=== PATIENT | male | born 1960 | race Caucasian/White ===

== ENCOUNTER → 2018-02-08 10:13 | Outpatient (CLI) | payer BC, SELFPAY ==
--- NOTE | 2018-02-08 10:24 | XR_ITS ---
XR ribs LT min 3V w CXR1V HISTORY: Is ITS.REASON: LT POSTERIOR RIB PAIN, FALL 5 DAYS AGO ORDERING PHYSICIAN: Michael Morris MD PATIENT AGE: 57 years COMPARISON: None FINDINGS: A frontal view of the chest shows no acute finding. Multiple views of the Left ribs were obtained. There is a minimally displaced fracture involving the posterior aspect of the left 10th rib and a nondisplaced fracture of the left ninth rib. IMPRESSION: Minimally displaced left 10th rib fracture with possible nondisplaced left ninth rib fracture
== END ==
PROVIDERS: PCP Family Medicine; Visit Provider Family Medicine
DX: R07.81 Pleurodynia (principal)
CPT/HCPCS: 71101

== ENCOUNTER → 2018-07-11 09:43 | Outpatient (CLI) | payer OTHER, SELFPAY ==
[2018-07-11 12:27] LABS: Alanine Aminotransferase 17 U/L (12-78); Albumin Level 3.8 gm/dL (3.4-5.0); Albumin/Globulin Ratio 1.3 (1.1-1.8); Alkaline Phosphatase 100 U/L (46-116); Anion Gap 11.9 mEq/L (5-15); Aspartate Amino Transferase 11 U/L (15-37); Bilirubin,Total 0.4 mg/dL (0.2-1.0); Blood Urea Nitrogen 19 mg/dL (7-18); Calcium 9.3 mg/dL (8.5-10.1); Carbon Dioxide 29 mmol/L (21.0-32.0); Chloride 106 mmol/L (98-107); Chol/HDL Ratio 3.3 (1-3.5); Cholesterol 201 mg/dL (140-200); Estimated Glomerular Filt Rate 87 ml/min (>60); GFR (African American) 105 ML/MIN (>60); Glucose 94 mg/dL (74-106); HDL Cholesterol 61 mg/dL (27-67); LDL Cholesterol 123 mg/dL (0-130); Potassium 4.9 mmoL/L (3.5-5.1); Sodium 142 mmol/L (136-145); Total Protein,Serum 6.8 gm/dL (6.4-8.2); Triglycerides 84 mg/dL (30-200); VLDL Cholesterol 17 mg/dL (0-40)
== END ==
PROVIDERS: PCP Family Medicine; Visit Provider Family Medicine
DX: E78.5 Hyperlipidemia, unspecified (principal); I10 Essential (primary) hypertension
CPT/HCPCS: 36415; 80053; 80061

== ENCOUNTER → 2020-01-07 10:05 | Outpatient (CLI) | payer OTHER, SELFPAY ==
[2020-01-07 11:31] LABS: Chloride 102 mmol/L (98-107); Potassium 4.2 mmoL/L (3.5-5.1); Sodium 138 mmol/L (136-145)
[2020-01-07 11:34] LABS: Alanine Aminotransferase 16 U/L (12-78); Albumin Level 3.8 g/dl (3.5-5.0); Albumin/Globulin Ratio 1.5 (1.1-1.8); Alkaline Phosphatase 75 U/L (38-126); Anion Gap 10.2 mEq/L (5-15); Aspartate Amino Transferase 20 U/L (17-59); Bilirubin,Total 0.4 mg/dl (0.2-1.3); Blood Urea Nitrogen 16 mg/dl (9-20); Carbon Dioxide 30 mmol/L (22.0-30.0); Cholesterol 229 mg/dl (140-200); Estimated Glomerular Filt Rate 99 ml/min (>60); GFR (African American) 120 ML/MIN (>60); Globulin 2.6 g/dL (1.3-3.2); Glucose 95 mg/dl (74-100); Total Protein,Serum 6.4 g/dl (6.3-8.2); Triglycerides 149 mg/dl (30-150); VLDL Cholesterol 30 mg/dL (0-40)
[2020-01-07 11:35] LABS: Chol/HDL Ratio 4.5 (1-3.5); HDL Cholesterol 51 mg/dl (40-60)
[2020-01-07 11:46] LABS: Direct LDL Cholesterol 150.43 mg/dL (100-129)
[2020-01-07 13:11] LABS: Prostate Specific Ag Screen 1.3 ng/ml (0.0-4.0)
== END ==
PROVIDERS: Visit Provider Physician Assistant
DX: I10 Essential (primary) hypertension (principal); E78.2 Mixed hyperlipidemia; Z12.5 Encounter for screening for malignant neoplasm of prostate
CPT/HCPCS: 36415; 80053; 80061; G0103

== ENCOUNTER → 2020-06-10 16:20 | Outpatient (CLI) | payer OTHER, SELFPAY ==
--- NOTE | 2020-06-10 16:33 | ECG_ITS ---
APPROVED REPORT Exam: Resting ECG HR:60 bpm ECG Measurements Heart Rate 60 AXES FL 186 P 36 QRSd 116 QRS -31 QT 404 T 1 QTc 404 <Conclusion> Normal sinus rhythm Left axis deviation,LAHB Incomplete RBBB Left ventricular hypertrophy with QRS widening Abnormal ECG Electronically signed by : Fracisco Hernandez, 06/10/2020 19:50:35
== END ==
PROVIDERS: PCP Family Medicine; Visit Provider Family Medicine
DX: Z01.810 Encounter for preprocedural cardiovascular examination (principal); H25.9 Unspecified age-related cataract
CPT/HCPCS: 93005

== ENCOUNTER → 2020-10-22 12:04 | Outpatient (CLI) | payer OTHER, SELFPAY ==
[2020-10-22 14:19] LABS: Chloride 101 mmol/L (98-107); Sodium 137 mmol/L (136-145)
[2020-10-22 14:22] LABS: Alanine Aminotransferase 20 U/L (12-78); Albumin Level 4.6 g/dl (3.5-5.0); Albumin/Globulin Ratio 1.6 (1.1-1.8); Alkaline Phosphatase 98 U/L (38-126); Aspartate Amino Transferase 32 U/L (17-59); Bilirubin,Total 0.7 mg/dl (0.2-1.3); Blood Urea Nitrogen 25 mg/dl (9-20); Carbon Dioxide 29 mmol/L (22.0-30.0); Cholesterol 160 mg/dl (140-200); Estimated Glomerular Filt Rate 76 ml/min (>60); GFR (African American) 92 ML/MIN (>60); Globulin 2.9 g/dL (1.3-3.2); Glucose 96 mg/dl (74-100); Total Protein,Serum 7.5 g/dl (6.3-8.2); Triglycerides 130 mg/dl (30-150); VLDL Cholesterol 26 mg/dL (0-40)
[2020-10-22 14:23] LABS: HDL Cholesterol 54 mg/dl (40-60)
[2020-10-22 14:34] LABS: Direct LDL Cholesterol 82.16 mg/dL (100-129)
[2020-10-22 14:53] LABS: Thyroid Stimulating Hormone 0.73 uIU/mL (0.465-4.68)
[2020-10-22 15:07] LABS: Hemoglobin A1C 5.6 % (4.0-6.0)
== END ==
PROVIDERS: Visit Provider Family Medicine
DX: I10 Essential (primary) hypertension (principal); E78.5 Hyperlipidemia, unspecified; R60.0 Localized edema; Z83.3 Family history of diabetes mellitus
CPT/HCPCS: 36415; 80053; 80061; 83036; 84443

== ENCOUNTER → 2020-12-10 10:56 | Outpatient (CLI) | payer OTHER, SELFPAY ==
[2020-12-10 11:43] LABS: Chloride 101 mmol/L (98-107); Potassium 4.5 mmoL/L (3.5-5.1); Sodium 138 mmol/L (136-145)
[2020-12-10 11:46] LABS: Anion Gap 12.5 mEq/L (5-15); Blood Urea Nitrogen 24 mg/dl (9-20); Carbon Dioxide 29 mmol/L (22.0-30.0); Estimated Glomerular Filt Rate 76 ml/min (>60); GFR (African American) 92 ML/MIN (>60)
[2020-12-10 11:47] LABS: Calcium 9.6 mg/dl (8.4-10.2); Glucose 106 mg/dl (74-100)
== END ==
PROVIDERS: Visit Provider Family Medicine
DX: R60.0 Localized edema (principal)
CPT/HCPCS: 36415; 80048

== ENCOUNTER → 2021-01-24 17:40 | Outpatient (CLI) | payer OTHER, SELFPAY | PROVIDERS: PCP Family Medicine; Visit Provider Orthopaedic Surgery Hand Surgery | DX: Z01.818 Encounter for other preprocedural examination (principal); Z11.52 Encounter for screening for COVID-19 | CPT/HCPCS: U0003 ==

== ENCOUNTER → 2021-05-06 08:23 | Outpatient (CLI) | payer OTHER, SELFPAY ==
[2021-05-06 09:57] LABS: Chloride 104 mmol/L (98-107); Sodium 140 mmol/L (136-145)
[2021-05-06 09:58] LABS: Potassium 4.6 mmoL/L (3.5-5.1)
[2021-05-06 09:59] LABS: Blood Urea Nitrogen 22 mg/dl (9-20)
[2021-05-06 10:00] LABS: Alanine Aminotransferase 13 U/L (12-78); Albumin Level 4.5 g/dl (3.5-5.0); Albumin/Globulin Ratio 1.6 (1.1-1.8); Alkaline Phosphatase 111 U/L (38-126); Anion Gap 12.6 mEq/L (5-15); Aspartate Amino Transferase 20 U/L (17-59); Bilirubin,Total 0.7 mg/dl (0.2-1.3); Calcium 9.3 mg/dl (8.4-10.2); Carbon Dioxide 28 mmol/L (22.0-30.0); Cholesterol 161 mg/dl (140-200); Estimated Glomerular Filt Rate 86 ml/min (>60); GFR (African American) 104 ML/MIN (>60); Globulin 2.8 g/dL (1.3-3.2); Glucose 105 mg/dl (74-100); Total Protein,Serum 7.3 g/dl (6.3-8.2); Triglycerides 94 mg/dl (30-150); VLDL Cholesterol 19 mg/dL (0-40)
[2021-05-06 10:01] LABS: Chol/HDL Ratio 3.2 (1-3.5); HDL Cholesterol 50 mg/dl (40-60); Magnesium 1.6 mg/dl (1.6-2.3)
[2021-05-06 10:12] LABS: Direct LDL Cholesterol 89.77 mg/dL (100-129)
[2021-05-06 11:11] LABS: Prostate Specific Ag Screen 1.5 ng/ml (0.0-4.0)
== END ==
PROVIDERS: Visit Provider Family Medicine
DX: I10 Essential (primary) hypertension (principal); E78.5 Hyperlipidemia, unspecified; Z12.5 Encounter for screening for malignant neoplasm of prostate
CPT/HCPCS: 36415; 80053; 80061; 83735; G0103

== ENCOUNTER → 2022-05-08 13:50 | Outpatient (CLI) | payer OTHER, SELFPAY | PROVIDERS: PCP Family Medicine; Visit Provider Orthopaedic Surgery Orthopaedic Trauma | DX: Z01.812 Encounter for preprocedural laboratory examination (principal); Z20.822 Contact with and (suspected) exposure to COVID-19 | CPT/HCPCS: C9803; U0003; U0005 ==

== ENCOUNTER → 2022-09-15 09:51 | Outpatient (CLI) | payer OTHER, SELFPAY ==
[2022-09-15 11:01] LABS: Basophils % 0.4 % (0.1-2.0); Eosinophils # 0.2 K/mm3 (0.0-0.4); Eosinophils % 3.1 % (0.1-12.0); Hematocrit 37.7 % (42.0-52.0); Hemoglobin 11.7 g/dL (14.1-18.0); Lymphocytes # 1.8 K/mm3 (0.7-4.5); Lymphocytes % 25.3 % (10-50); Mean Corpuscular Hemoglobin 26.7 pg (27.0-31.2); Mean Corpuscular Volume 86.2 fl (80-94); Mean Platelet Volume 9.2 fl (7.4-10.4); Monocytes # 0.4 K/mm3 (0.1-1.0); Monocytes % 6.2 % (1.7-9.3); Neutrophils # 4.5 K/mm3 (1.8-7.8); Neutrophils % 64.9 % (37.0-80.0); Platelet Count 273 K/mm3 (142-424); Red Blood Count 4.38 M/mm3 (4.60-6.20); Red Cell Distribution Width 15.2 % (11.5-17.5)
[2022-09-15 11:29] LABS: Anion Gap 12.6 mEq/L (5-15); Blood Urea Nitrogen 16 mg/dl (9-20); Carbon Dioxide 29 mmol/L (22.0-30.0); Chloride 104 mmol/L (98-107); Estimated Glomerular Filt Rate 86 ml/min (>60); Potassium 4.6 mmoL/L (3.5-5.1); Sodium 141 mmol/L (136-145)
[2022-09-15 11:30] LABS: Alanine Aminotransferase 16 U/L (12-78); Albumin Level 4.1 g/dl (3.5-5.0); Albumin/Globulin Ratio 1.5 (1.1-1.8); Alkaline Phosphatase 168 U/L (38-126); Aspartate Amino Transferase 22 U/L (17-59); Bilirubin,Total 0.3 mg/dl (0.2-1.3); Chol/HDL Ratio 3.1 (1-3.5); Cholesterol 169 mg/dl (140-200); GFR (African American) 103 ML/MIN (>60); Globulin 2.7 g/dL (1.3-3.2); Glucose 99 mg/dl (74-100); HDL Cholesterol 54 mg/dl (40-60); Total Protein,Serum 6.8 g/dl (6.3-8.2); Triglycerides 122 mg/dl (30-150); VLDL Cholesterol 24 mg/dL (0-40)
[2022-09-15 11:43] LABS: Direct LDL Cholesterol 87.13 mg/dL (100-129)
[2022-09-15 11:55] LABS: Hemoglobin A1C 5.6 % (4.0-6.0)
[2022-09-15 12:01] LABS: Prostate Specific Ag Screen 1.6 ng/ml (0.0-4.0); Thyroid Stimulating Hormone 1.03 uIU/mL (0.465-4.68)
== END ==
PROVIDERS: PCP Family Medicine; Visit Provider Physician Assistant
DX: I10 Essential (primary) hypertension (principal); E78.5 Hyperlipidemia, unspecified; E66.01 Morbid (severe) obesity due to excess calories; Z12.5 Encounter for screening for malignant neoplasm of prostate
CPT/HCPCS: 36415; 80053; 80061; 83036; 84443; 85025; G0103

== ENCOUNTER → 2022-10-12 09:12 | Outpatient (CLI) | payer OTHER, SELFPAY ==
[2022-10-12 09:55] LABS: Basophils % 0.6 % (0.1-2.0); Eosinophils # 0.2 K/mm3 (0.0-0.4); Eosinophils % 3.4 % (0.1-12.0); Lymphocytes # 1.7 K/mm3 (0.7-4.5); Lymphocytes % 27.2 % (10-50); Mean Corpuscular HGB Conc 31.3 g/dL (31.8-35.4); Mean Corpuscular Hemoglobin 27.3 pg (27.0-31.2); Mean Corpuscular Volume 87.1 fl (80-94); Mean Platelet Volume 9.1 fl (7.4-10.4); Monocytes # 0.3 K/mm3 (0.1-1.0); Monocytes % 5.2 % (1.7-9.3); Neutrophils # 3.9 K/mm3 (1.8-7.8); Neutrophils % 63.6 % (37.0-80.0); Platelet Count 256 K/mm3 (142-424); Red Blood Count 4.02 M/mm3 (4.60-6.20); Red Cell Distribution Width 15.6 % (11.5-17.5)
[2022-10-12 10:56] LABS: Reticulocyte % (Auto) 1.3 % (0.9-3.2)
[2022-10-12 11:17] LABS: Total Iron Binding Capacity 338 ug/dL (261-462)
[2022-10-12 12:14] LABS: Vitamin B12 400 pg/mL (239-931)
[2022-10-12 12:30] LABS: Folate > 20.00 ng/mL
[2022-10-12 12:52] LABS: 25-OH Vitamin D, Total 23.7 ng/mL (30-100)
[2022-10-12 13:47] LABS: Iron 61 ug/dL (49-181)
[2022-10-12 14:15] LABS: Ferritin 12.6 ng/ml (17.9-464)
== END ==
PROVIDERS: PCP Family Medicine; Visit Provider Physician Assistant
DX: I10 Essential (primary) hypertension (principal); E78.5 Hyperlipidemia, unspecified; E66.01 Morbid (severe) obesity due to excess calories; Z12.5 Encounter for screening for malignant neoplasm of prostate
CPT/HCPCS: 36415; 82306; 82607; 82728; 82746; 83540; 83550; 85025; 85044

== ENCOUNTER 2023-02-28 08:00 | Outpatient (RCR) | payer OTHER, SELFPAY | END 2023-02-28 08:05 | disposition home or self-care (01) | LOC: PT 08:00 | PROVIDERS: Visit Provider Orthopaedic Surgery | DX: S82.871B Displaced pilon fracture of right tibia, initial encounter for open fracture type I or II (principal); M79.604 Pain in right leg; R60.0 Localized edema | CPT/HCPCS: 97140; 97162; 97164 ==

== ENCOUNTER 2023-11-29 08:01 | Outpatient (CLI) | payer BC, SELFPAY ==
[2023-11-29 09:30] LABS: Chloride 105 mmol/L (98-107); Potassium 4.7 mmoL/L (3.5-5.1); Sodium 140 mmol/L (136-145)
[2023-11-29 09:32] LABS: Blood Urea Nitrogen 14 mg/dl (9-20); Estimated Glomerular Filt Rate 85 ml/min (>60); GFR (African American) 103 ML/MIN (>60)
[2023-11-29 09:33] LABS: Alanine Aminotransferase 23 U/L (12-78); Albumin Level 4.4 g/dl (3.5-5.0); Albumin/Globulin Ratio 1.5 (1.1-1.8); Alkaline Phosphatase 90 U/L (38-126); Anion Gap 12.7 mEq/L (5-15); Aspartate Amino Transferase 36 U/L (17-59); Bilirubin,Total 0.6 mg/dl (0.2-1.3); Calcium 8.8 mg/dl (8.4-10.2); Carbon Dioxide 27 mmol/L (22.0-30.0); Cholesterol 145 mg/dl (140-200); Globulin 2.9 g/dL (1.3-3.2); Glucose 95 mg/dl (74-100); Total Protein,Serum 7.3 g/dl (6.3-8.2); Triglycerides 145 mg/dl (30-150); VLDL Cholesterol 29 mg/dL (0-40)
[2023-11-29 09:34] LABS: Chol/HDL Ratio 3.8 (1-3.5); HDL Cholesterol 38 mg/dl (40-60)
[2023-11-29 09:44] LABS: Direct LDL Cholesterol 73.14 mg/dL (100-129)
[2023-11-29 10:28] LABS: Prostate Specific Ag Screen 1.4 ng/ml (0.0-4.0)
== END 2023-11-29 23:59 ==
LOC: LAB 08:03
PROVIDERS: PCP Family Medicine; Visit Provider Family Medicine
DX: I10 Essential (primary) hypertension (principal); E78.5 Hyperlipidemia, unspecified; Z12.5 Encounter for screening for malignant neoplasm of prostate
CPT/HCPCS: 36415; 80053; 80061; G0103

== ENCOUNTER 2024-05-18 07:26 | Outpatient (CLI) | payer BC, OTHER, SELFPAY ==
[2024-05-18 09:29] LABS: Chloride 108 mmol/L (98-107); Potassium 4.3 mmoL/L (3.5-5.1); Sodium 141 mmol/L (136-145)
[2024-05-18 09:31] LABS: Blood Urea Nitrogen 14 mg/dl (9-20); Estimated Glomerular Filt Rate 85 ml/min (>60); GFR (African American) 103 ML/MIN (>60)
[2024-05-18 09:32] LABS: Alanine Aminotransferase 16 U/L (12-78); Albumin Level 3.8 g/dl (3.5-5.0); Albumin/Globulin Ratio 1.5 (1.1-1.8); Alkaline Phosphatase 94 U/L (38-126); Anion Gap 12.3 mEq/L (5-15); Aspartate Amino Transferase 21 U/L (17-59); Bilirubin,Total 0.3 mg/dl (0.2-1.3); Calcium 9.1 mg/dl (8.4-10.2); Carbon Dioxide 25 mmol/L (22.0-30.0); Cholesterol 164 mg/dl (140-200); Globulin 2.6 g/dL (1.3-3.2); Glucose 96 mg/dl (74-100); Total Protein,Serum 6.4 g/dl (6.3-8.2); Triglycerides 149 mg/dl (30-150); VLDL Cholesterol 30 mg/dL (0-40)
[2024-05-18 09:33] LABS: Chol/HDL Ratio 3.6 (1-3.5); HDL Cholesterol 45 mg/dl (40-60)
[2024-05-18 09:43] LABS: Direct LDL Cholesterol 88.19 mg/dL (100-129)
== END 2024-05-18 23:59 | disposition home or self-care (01) ==
PROVIDERS: PCP Family Medicine; Visit Provider Family Medicine
DX: E78.5 Hyperlipidemia, unspecified (principal); I10 Essential (primary) hypertension
CPT/HCPCS: 36415; 80053; 80061

== ENCOUNTER 2025-01-22 07:58 | Outpatient (CLI) | payer MEDICARE, BC, SELFPAY ==
[2025-01-22 08:22] LABS: Basophils % 0.4 % (0.1-2.0); Eosinophils # 0.2 K/mm3 (0.0-0.4); Eosinophils % 2.5 % (0.1-12.0); Hematocrit 37.6 % (42.0-52.0); Hemoglobin 12.3 g/dL (14.1-18.0); Lymphocytes % 29.4 % (10-50); Mean Corpuscular HGB Conc 32.7 g/dL (31.8-35.4); Mean Corpuscular Hemoglobin 27.8 pg (27.0-31.2); Mean Corpuscular Volume 85.1 fl (80-94); Mean Platelet Volume 11.1 fl (7.4-10.4); Monocytes # 0.5 K/mm3 (0.1-1.0); Monocytes % 7.3 % (1.7-9.3); Neutrophils % 60.3 % (37.0-80.0); Platelet Count 226 K/mm3 (142-424); Red Blood Count 4.42 M/mm3 (4.60-6.20); Red Cell Distribution Width 13.8 % (11.5-17.5); White Blood Count 6.7 K/mm3 (4.8-10.8)
[2025-01-22 09:00] LABS: Alanine Aminotransferase 22 U/L (12-78); Albumin Level 4.5 g/dl (3.5-5.0); Alkaline Phosphatase 94 U/L (38-126); Anion Gap 10.2 mEq/L (5-15); Aspartate Amino Transferase 23 U/L (17-59); Bilirubin,Total 0.5 mg/dl (0.2-1.3); Blood Urea Nitrogen 16 mg/dl (9-20); Calcium 9.5 mg/dl (8.4-10.2); Carbon Dioxide 23 mmol/L (22.0-30.0); Chloride 110 mmol/L (98-107); Chol/HDL Ratio 3.3 (1-3.5); Cholesterol 172 mg/dl (140-200); Estimated Glomerular Filt Rate 85 ml/min (>60); GFR (African American) 103 ML/MIN (>60); Globulin 2.3 g/dL (1.3-3.2); Glucose 101 mg/dl (74-100); HDL Cholesterol 52 mg/dl (40-60); Potassium 4.2 mmoL/L (3.5-5.1); Sodium 139 mmol/L (136-145); Total Protein,Serum 6.8 g/dl (6.3-8.2); Triglycerides 177 mg/dl (30-150); VLDL Cholesterol 35 mg/dL (0-40)
[2025-01-22 09:11] LABS: Direct LDL Cholesterol 80.78 mg/dL (100-129)
[2025-01-22 09:15] LABS: 25-OH Vitamin D, Total 37.6 ng/mL (30-100)
[2025-01-22 09:30] LABS: Prostate Specific Ag Screen 1.7 ng/ml (0.0-4.0)
[2025-01-22 10:53] LABS: Iron 101 ug/dL (49-181)
== END 2025-01-22 23:59 | disposition home or self-care (01) ==
LOC: LAB 08:01
PROVIDERS: PCP Family Medicine; Visit Provider Family Medicine
DX: E55.9 Vitamin D deficiency, unspecified (principal); D50.9 Iron deficiency anemia, unspecified; I10 Essential (primary) hypertension; E78.5 Hyperlipidemia, unspecified; Z12.5 Encounter for screening for malignant neoplasm of prostate
CPT/HCPCS: 36415; 80053; 80061; 82306; 83540; 85025; G0103

== ENCOUNTER 2025-07-23 07:47 | Outpatient (CLI) | payer MEDICARE, BC, SELFPAY ==
--- OUTSIDE RECORDS SUMMARY | 2024-07-02 06:30 | XMS_ITS ---
Author Organization [facility] Address [address] [place] [id number] Care Team Providers Care Director Of Vocational Guidance Name Role Phone Xiang Morris Primary Care Provider Allergies Allergen (clinical drug ingredient) Drug/Non Drug Allergy documented on EMR Reaction Allergy Type Onset Date Status ezetimibe / simvastatin Vytorin muscle aches Drug Allergy Active pravastatin Pravastatin muscle aches Drug Allergy Active REASON FOR VISIT discuss adjustment setting on cpap machine Medications Medication SIG (Take, Route, Frequency, Duration) Notes Start Date End Date Status CPAP Supplies - as directed as directed diagnosis: G47.33 BRYNN (obstructive sleep apnea) 07/04/2023 Active Aspirin 81 81 MG 1 tablet Orally Once a day; Duration: 30 day(s) Active PriLOSEC OTC 20 MG 1 tablet 30 minutes before morning meal Orally Two times a day Active Metamucil Premium Blend 52.63 % as directed Orally Active Vitamin D3 125 MCG (5000 UT) 1 tablet Orally Once a day; Duration: 30 day(s) Active AutoPAP - 09/06 as directed as directed 05/14/2024 Active Irbesartan 300 MG 1 tab(s) orally once a day Active Rosuvastatin Calcium 5 MG 1 tab(s) orally once a day Active CareTouch CPAP & BIPAP Hose 1 DIRECTED 09/09/2020 Active Zetia 10 MG take 1 tablet daily orally once a day Active Promethazine-DM 6.25-15 MG/5ML 5 ml Orally every 6 hrs, prn 10/09/2023 Active Ferrous Sulfate 325 (65 Fe) MG 1 tab(s) orally once daily; Duration: 90 days 10/18/2022 Active ZyrTEC Allergy 10 MG 1 tab(s) orally onc e a day; Duration: 90 days Active Lasix 40 MG 1 tab(s) orally once a day Active Vital Signs Blood pressure systolic 142 mm Hg 07/02/20 24 Blood pressure diastolic 82 mm Hg 024 Heart Rate 76 /min 07/02/2024 Height 70.25 in 07/02/2024 Weight 338.8 lbs 07/02/2024 BMI 48.26 kg/m2 07/02/2024 Encounters Encounter Location Date Provider Diagnosis [facility] [address] [facility] [place] [id number] 07/02/2024 Xiang Morris BRYNN (obstructive sleep apnea) G47.33 Assessments Encounter Date Diagnosis (ICD Code) Assessment Notes Treatment Notes Treatment Clinical Notes Section Notes 07/02/2024 BYRNN (obstructive sleep apnea) (ICD-10 - G47.33) Plan Of Treatment Medication Medication Name Sig Start Date Stop Date Notes AutoPAP - 09/06 as directed as directed 05/14/2024 Next Appt Details Follow Up: prn, Reason: Progress Notes * ABEL GLEZDOB:1960 (65 yo M)Acc No.[id number]:07/02/2024 Progress Notes Patient: ABEL PETTY Provider: Xiang Morris M.D. :1960 A ge:64 Y S ex:Male Date:07/02/2024 Address:[address] [place], [place] [phone] Subjective: * Chief Complaints: * 1 . Discuss adjustment setting on cpap machine. * HPI: E NT/respiratory: Abel has been under treatment for sleep apnea with CPAP. He recently obtained a new machine but the settings are incorrect. His previous AutoPap was set at 10/20. His new machine is set at 6/16 and is not working as well. * ROS: D ERMATOLOGY: no R ivana. n o H shavonne. G ASTROENTEROLOGY: no N ausea. n o V omiting. U ROLOGY: no D ifficulty urinating. n o B lood in urine. * Medical History: H ypertension, Hyperlipidemia, GERD, OA, Cataracts, Osteomyelitis left foot, Peripheral neuropathy. * Surgical History: c arpal tunnel- right 1993, tonsillectomy , adenoidectomy , Amputation distal phalanx left second toe for osteomyelitis - Dr. 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 * Hospitalization/Major Diagno stic Procedure: H ER-hives 05/23/13, Broken Tibia and Fibia of the Right Leg 04/2022. * Family History: F ather: alive 68 yrs. M other: alive 74 yrs, hyperlipidemia, hypertension. P aternal Grand Father: . P aternal Grand Mother: . M aternal Grand Father: . Maternal Grand Mother: . 1 brother(s) , 1 sister(s) . 1 son(s) , 1 daughter(s) . .? * Social History: C URRENT TOBACCO USE S moking Status: Patient does NOT smoke, Second hand smoke exposure: No. C affeine: yes, frequency:daily. Exercise: no. Home smoke detector use: yes. Marital Status: . New since last visit: none. Occupation: yes. Past smoking status: no, Smoking status: Does not smoke. Occup. exposure: none. Recreational drug use: no. Alcohol: no. Sexually active: yes. Travel ouside [place]: no. * Medications: T aking Metamucil Premium Blend 52.63 % Powder as directed Orally , Taking Vitamin D3 125 MCG (5000 UT) Tablet Chewable 1 tablet Orally Once a day , Taking Aspirin 81 81 MG Tablet Delayed Release 1 tablet Orally Once a day , Taking PriLOSEC OTC 20 MG Tablet Delayed Release 1 tablet 30 minutes before morning meal Orally Two times a day , Taking CPAP Supplies - - as directed as directed , Notes to Pharmacist: diagnosis: G47.33 BRYNN (obstructive sleep apnea), Taking Promethazine-DM 6.25-15 MG/5ML Syrup 5 ml Orally every 6 hrs, prn , Taking Ferrous Sulfate 325 (65 Fe) MG Tablet Delayed Release 1 tab(s) orally once daily , Taking ZyrTEC Allergy 10 MG Tablet 1 tab(s) orally once a day , Taking Lasix 40 MG Tablet 1 tab(s) orally once a day , Taking Irbesartan 300 MG Tablet 1 tab(s) orally once a day , Taking Rosuvastatin Calcium 5 MG Tablet 1 tab(s) orally once a day , Taking Zetia 10 MG Tablet take 1 tablet daily orally once a day , Taking AutoPAP - - 05/03 as directed as directed , Taking CareTouch CPAP & BIPAP Hose MACHINE AND SUPPLIES 1 DIRECTED , Medication List reviewed and reconciled with the patient * Allergies: V ytorin: muscle aches, Pravastatin: muscle aches. Objective: * Vitals: W t:338.8, Temp:98.5, BP:142/82, HR:76, Nurse:RANJAN, Ht: 70.25, BMI:48.26. Assessment: * Assessment: 1. O SA (obstructive sleep apnea) - G47.33 (Primary) Plan: * Treatment: * Follow Up: p rn * Images: Billing Information: * Visit Code: 02368 Office Visit, Est Pt., Level 3. * Procedure Codes: * Electronic signature of Xiang Morris MD on 07/23/2025 at 07:51 AM EDT Sign off status: Pending * Provider: Xiang Morris M.D. Date: 0 07/02/2024 Generated for Courtney lemus/Velma/David on: 07/23/2025 07:51 AM EDT
--- OUTSIDE RECORDS SUMMARY | 2024-08-24 07:10 | XMS_ITS ---
[facility] Address [address] [place] [id number] Care Team Providers Care Pinion Polisher Name Role Phone Xiang Morris Primary Care Provider REASON FOR VISIT Flu Immunizations Vaccine Route Administration Date Status Comme nts Fluzone Quad (6months&older) IM Intramuscular 08/24/2024 Administered Encounters Encounter Location Date Provider Diagnosis [facility] [address] [place] [phone] 08/24/2024 Xiang Morris Plan Of Treatment No Information Progress Notes * MAGY NELSONDOB:1960 (65 yo M)Acc No.[id number]:08/24/2024 Patient: MAGY PETTY Provider: Xiang Morris M.D. :1960 A ge:64 Y S ex:Male Date:08/24/2024 Address:[address] [id number] Subjective: * Chief Complaints: * 1 . Flu. * Medical History: Objective: * Vitals: Assessment: Plan: * Treatment: * Immunizations: Fluzone Quad (6months&older) : 0.5 mL (Route: Intramuscular) given by LENNY Vail on Left Deltoid * Images: Billing Information: * Visit Code: * Procedure Codes: * Electronic signature of Xiang Morris MD on 07/23/2025 at 07:52 AM EDT Sign off status: Pending * Provider: Xiang Morris M.D. Date: 1 Generated for Courtney lemus/Velma/David on: 0 07/23/2025 07:52 AM EDT
--- OUTSIDE RECORDS SUMMARY | 2024-09-10 10:45 | XMS_ITS ---
Author Organization [facility] Address [address] [place] [id number] Care Team Providers Care Costing Analyst Name Role Phone Xiang Morris Primary Care Provider Allergies Allergen (clinical drug ingredient) Drug/Non Drug Allergy documented on EMR Reaction Allergy Type Onset Date Status ezetimibe / simvastatin Vytorin muscle aches Drug Allergy Active pravastatin Pravastatin muscle aches Drug Allergy Active REASON FOR VISIT CPAP Follow Up Medications Medication SIG (Take, Route, Frequency, Duration) Notes Start Date End Date Status PriLOSEC OTC 20 MG 1 tablet 30 minutes before morning meal Orally Two times a day; Duration: 90 days Active AutoPAP - 09/06 as directed as directed 05/14/2024 Active CareTouch CPAP & BIPAP Hose 1 DIRECTED 09/09/20 20 Active Zetia 10 MG take 1 tablet daily orally once a day Active Rosuvastatin Calcium 5 MG 1 tab(s) orall y once a day Active Irbesartan 300 MG 1 tab(s) orally once a day Active Lasix 40 MG 1 tab(s) orally once a day Active ZyrTEC Allergy 10 MG 1 tab(s) orally onc e a day; Duration: 90 days Active Ferrous Sulfate 325 (65 Fe) MG 1 tab(s) orally once daily; Duration: 90 days 10/18/2022 Active Aspirin 81 81 MG 1 tablet Orally Once a day; Duration: 30 day(s) Active Vitamin D3 125 MCG (5000 UT) 1 tablet Orally Once a day; Duration: 30 day(s) Active Metamucil Premium Blend 52.63 % as directed Orally Active Vital Signs Blood pressure systolic 150 mm Hg 09/10/20 24 Blood pressure diastolic 80 mm Hg 024 Heart Rate 95 /min 09/10/2024 Height 70.25 in 09/10/2024 Weight 341.4 lbs 09/10/2024 BMI 48.63 kg/m2 09/10/2024 Encounters Encounter Location Date Provider Diagnosis [facility] [address] [place] [phone] 09/10/2024 Xiang Morris BRYNN (obstructive sleep apnea) G47.33 Assessments Encounter Date Diagnosis (ICD Code) Assessment Notes Treatment Notes Treatment Clinical Notes Section Notes 09/10/2024 BRYNN (obstructive sleep apnea) (ICD-10 - G47.33) Patient is consistently using CPAP machine and is getting excelllent benefit See enclosed report Plan Of Treatment Treatment Notes Assessment Notes BRYNN (obstructive sleep apnea) Patient is consistently using CPAP machine and is getting excelllent benefit Next Appt Details Follow Up: prn, Reason: Progress Notes * MAGY GLEZDOB:1960 (65 yo M)Acc No.[id number]:09/10/2024 Progress Notes Patient: MAGY PETTY Provider: Xiang Morris M.D. :1960 A ge:64 Y S ex:Male Date:09/10/2024 Address:[address] [place], [place] [phone] Subjective: * Chief Complaints: * 1 . CPAP Follow Up. * HPI: H PI: 64 year old male presents with c/o Patient is here today for?Pt is needing letter for insurance from PCP stating that pt needs CPAP and does benefit from it. . I have reviewed the CME compliance report and he has been over 90% compliant with use of the CPAP. * ROS: D ERMATOLOGY: no R ivana. n o H shavonne. G ASTROENTEROLOGY: no N ausea. n o V omiting. U ROLOGY: no D ifficulty urinating. n o B lood in urine. * Medical History: H ypertension, Hyperlipidemia, GERD, Osteo Arthritis, Cataracts, Osteomyelitis left foot, Peripheral neuropathy. * Surgical History: R T Carpal Tunnel Release 1993, Tonsillectomy , Adenoidectomy , Amputation distal phalanx left second toe for osteomyelitis - Dr. Alaniz 06/20/2021, Broken Tibia and Fibia of the Right Leg 04/2022. * Hospitalization/Major Diagno stic Procedure: H shavonne- [facility] 05/23/2013, Broken Tibia and Fibia of the Right [...] tablet Orally Once a day , Taking Ferrous Sulfate 325 (65 Fe) [...] daily orally once a day , Taking CareTouch CPAP & BIPAP Hose MACHINE AND SUPPLIES 1 DIRECTED , Taking AutoPAP - - 09/06 as directed as directed , Taking PriLOSEC OTC 20 MG Tablet Delayed Release 1 tablet 30 minutes before morning meal Orally Two times a day , Discontinued Promethazine-DM 6.25-15 MG/5ML Syrup 5 ml Orally every 6 hrs, prn , Medication List reviewed and reconciled with the patient * Allergies: V ytorin: muscle aches, Pravastatin: muscle aches. Objective: * Vitals: W t:341.4, Temp:98.1, BP:150/80, HR:95, O2 Sat:98% on RA, Nurse:kylie, Ht: 70.25, BMI:48.63. * Examination: C ardiology: General Appearance: p leasant, NAD. . H eart sounds:?RRR, normal S1, S2. M urmur, click , gallop: n one. L ungs: c lear, no rales or wheezes. E xtremities: b ilateral lipedema. No drainage. Assessment: * Assessment: 1. O SA (obstructive sleep apnea) - G47.33 (Primary) Plan: * Treatment: * Procedure Codes: 9 4760 PULSE OX * Follow Up: p rn * Images: Billing Information: * Visit Code: 76817 Office Visit, Est Pt., Level 3. * Procedure Codes: 29623 PULSE OX. * Electronic signature of Xinag Morris MD on 07/23/2025 at 07:51 AM EDT Sign off status: Pending * Provider: Xiang Morris M.D. Date: Generated for Courtney lemus/Velma/Marlenasmitting on: 0 07/23/2025 07:51 AM EDT History and Physical Notes * HPI (History of Present Illness) Category Sub-Category Detail Notes Category Not es HPI Patient is here toda y for Pt is needing letter for insurance from PCP stating that pt needs CPAP and does benefit from it. I have reviewed the CME compliance report and he has been over 90% compliant with use of the CPAP. Examination Category Sub-Category Detail Notes Category Not es Cardiology Lungs: clear, no rales or wheezes Heart sounds: RRR, normal S1, S2 Extremities: bilateral lipedema. No drainage Murmur, click , gallop: none General Appearance: pleasant, NAD.
--- OUTSIDE RECORDS SUMMARY | 2025-01-21 10:00 | XMS_ITS ---
Author Organization [facility] Address [address] [place] [id number] Care Team Providers Care Digital Solutions Architect Name Role Phone Xiang Morris Primary Care Provider Allergies Allergen (clinical drug ingredient) Drug/Non Drug Allergy documented on EMR Reaction Allergy Type Onset Date Status ezetimibe / simvastatin Vytorin muscle aches Drug Allergy Active pravastatin Pravastatin muscle aches Drug Allergy Active Results Component Value Reference Range Notes H-CBC Reviewed date:01/26/2025 08:55:23 AM Interpretation:rbc 4.42, hgb 12.3, hct 37.6, mpv 11.1 Performing Lab: Notes/Report: WBC 6.7 4.8-10.8 K/mm3 RBC 4.42 4.60-6.20 M/mm3 HGB 12.3 14.1-18.0 g/dL HCT 37.6 42.0-52.0 % MCV 85.1 80-94 fl MCH 27.8 27.0-31.2 pg MCHC 32.7 31.8-35.4 g/dL RDW 13.8 11.5-17.5 % PLT 226 142-424 K/mm3 MPV 11.1 7.4-10.4 fl NE% 60.3 37.0-80.0 % LY% 29.4 10-50 % MO% 7.3 1.7-9.3 % EO% 2.5 0.1-12.0 % BA% 0.4 0.1-2.0 % NE# 4.0 1.8-7.8 K/mm3 LY# 2.0 0.7-4.5 K/mm3 MO# 0.5 0.1-1.0 K/mm3 EO# 0.2 0.0-0.4 K/mm3 BA# 0.0 0-0.2 K/mm3 H-VITAMIN D Reviewed date:01/26/2025 08:55:23 AM Interpretation:37.6 Performing Lab: Notes/Report: TVITD 37.6 30-100 ng/mL Deficient <20 ng/mL Insufficient 20-30 ng/mL Sufficient 30-100 ng/mL Potential Toxicity >100 ng/mL H-Lipid Panel Reviewed date:01/26/2025 08:55:23 AM Interpretation:trigs 177 Performing Lab: Notes/Report: Patient Fasting? Y TRIG 177 30-150 mg/dl CHOL 172 140-200 mg/dl DLDL 80.78 100-129 mg/dL VLDL 35 0-40 mg/dL HDL 52 40-60 mg/dl CHLHDL 3.3 1-3.5 H-CMP Reviewed date:01/26/2025 08:55:23 AM Interpretation:cl 110, gluc 101, a/g 2 Performing Lab: Notes/Report: NA 139 136-145 mmol/L K 4.2 3.5-5.1 mmoL/L CL 110 98-107 mmol/L CO2 23 22.0-30.0 mmol/L GAP 10.2 5-15 mEq/L BUN 16 9-20 mg/dl CREATT 0.90 0.66-1.25 mg/dl GFRAA 103 >60 ML/MIN EGFR 85 >60 ml/min GLU 101 74-100 mg/dl CA 9.5 8.4-10.2 mg/dl BILIT 0.5 0.2-1.3 mg/dl AST 23 17-59 U/L ALT 22 12-78 U/L TP 6.8 6.3-8.2 g/dl ALB 4.5 3.5-5.0 g/dl GLOB 2.3 1.3-3.2 g/dL AGRATIO 2.0 1.1-1.8 ALP 94 38-126 U/L H-PSA Reviewed date:01/26/2025 08:55:23 AM Interpretation:Normal Performing Lab: Notes/Report: PSASC 1.7 0.0-4.0 ng/ml H-Iron Reviewed date:01/26/2025 08:55:23 AM Interpretation:Normal Performing Lab: Notes/Report: FE 101 49-181 ug/dL REASON FOR VISIT checkup, discuss Cpap, Needs labs with PSA, colon cancer screening, Tdap, & shingles vaccine Medications Medication SIG (Take, Route, Frequency, Duration) Notes Start Date End Date Status CareTouch CPAP & BIPAP Hose 1 DIRECTED 09/09/20 Active Irbesartan 300 MG 1 tab(s) orally once a day; Duration: 90 days Active Zetia 10 MG take 1 tablet daily orally once a day; Duration: 90 days Active AutoPAP - 09/06 as directed as directed 05/14/2024 Active PriLOSEC OTC 20 MG 1 tablet 30 minutes before morning meal Orally Two times a day; Duration: 90 days Active Ferrous Sulfate 325 (65 Fe) MG 1 tab(s) orally once daily; Duration: 90 days 10/18/2022 Active ZyrTEC Allergy 10 MG 1 tab(s) orally onc e a day; Duration: 90 days Active Aspirin 81 81 MG 1 tablet Orally Once a day; Duration: 30 day(s) Active Lasix 40 MG 1 tab(s) orally once a day Active Rosuvastatin Calcium 5 MG 1 tab(s) orall y once a day Active Vitamin D3 125 MCG (5000 UT) 1 tablet Orally Once a day; Duration: 30 day(s) Active Metamucil Premium Blend 52.63 % as directed Orally Active Problems Problem Type SNOMED Code ICD Code Onset Dates Problem Status W/U Status Risk Notes Problem Iron deficiency anemia (43920541) Iron deficiency anemia (D50.9) Active confirmed Vital Signs Blood pressure systolic 140 mm Hg 01/22/20 25 Blood pressure diastolic 84 mm Hg 025 Heart Rate 65 /min 01/21/2025 Height 70.25 in 01/21/2025 Weight 344.0 lbs 01/21/2025 BMI 49.00 kg/m2 01/21/2025 Encounters Encounter Location Date Provider Diagnosis [facility] [address] [facility] [place] [id number] 01/21/2025 R Dmoinik Morris BRYNN (obstructive sle ep apnea) G47.33 ; Vitamin D deficiency E55.9 ; Peripheral polyneuropathy G62.9 ; Essential hypertension I10 ; Dyslipidemia E78.5 ; Screening for prostate cancer Z12.5 and Iron deficiency anemia D50.9 Assessments Encounter Date Diagnosis (ICD Code) Assessment Notes Treatment Notes Treatment Clinical Notes Section Notes 01/21/2025 BRYNN (obstructive sleep apnea) (ICD-10 - G47.33) Patient is consistently using CPAP machine and is getting excelllent benefit See enclosed report 01/21/2025 Vitamin D deficiency (ICD-10 - E55.9) 01/21/2025 Peripheral polyneuropathy (ICD-10 - G62.9) 01/21/2025 Essential hypertension (ICD-10 - I10) 01/21/2025 Dyslipidemia (ICD-10 - E78.5) 01/21/2025 Screening for prostate cancer (ICD-10 - Z12.5) 01/21/2025 Iron deficiency anemia (ICD-10 - D50.9) Plan Of Treatment Treatment Notes Assessment Notes BRYNN (obstructive sleep apnea) Patient is consistently using CPAP machine and is getting excelllent benefit Next Appt Details Follow Up: 6 Months, Reason: Progress Notes * ABEL GLEZDOB:1960 (65 yo M)Acc No.[id number]:01/21/2025 Progress Notes Patient: ABEL PETTY Provider: Xiang Morris M.D. :1960 A ge:64 Y S ex:Male Date:01/21/2025 Address:[address] [place] [address] Subjective: * Chief Complaints: * 1 . checkup, discuss Cpap. 2. Needs labs with PSA, colon cancer screening, Tdap, & shingles vaccine. * HPI: H PI: Abel comes in for follow-up on sleep apnea. He recently switched on to Medicare insurance and needs documentation of compliance and benefit with use of his CPAP. I have reviewed the most recent CME compliance report and he has been over 90% compliant with use of the CPAP. He subjectively reports excellent benefit with increased energy and decrease in daytime drowsiness. C ardiology: He is due for routine blood work. * ROS: D ERMATOLOGY: no R ivana. [...] * Hospitalization/Major Diagno stic Procedure: H shavonne- [facility] ER 05/23/2013, Broken Tibia and Fibia of [...] tab(s) orally once a day , Taking CareTouch CPAP & BIPAP Hose MACHINE AND SUPPLIES 1 DIRECTED , Taking AutoPAP - - 09/06 as directed as directed , Taking PriLOSEC OTC 20 MG Tablet Delayed Release 1 tablet 30 minutes before morning meal Orally Two times a day , Taking Irbesartan 300 MG Tablet 1 tab(s) orally once a day , Taking Zetia 10 MG Tablet take 1 tablet daily orally once a day , Medication List reviewed and reconciled with the patient * Allergies: V ytorin: muscle aches, Pravastatin: muscle aches. Objective: * Vitals: W t:344.0, Temp:98.4, BP:140/84, HR:65, O2 Sat:99% on RA, [facility], Ht: 70.25, BMI:49.00. * Examination: C ardiology: General Appearance: p leasant, NAD. . H eart sounds:?RRR, normal S1, S2. M urmur, click , gallop: n one. L ungs: c lear, no rales or wheezes. E xtremities: b ilateral lipedema. No drainage. Assessment: * Assessment: 1. O SA (obstructive sleep apnea) - G47.33 (Primary) 2 . V itamin D deficiency - E55.9 3 . P eripheral polyneuropathy - G62.9 4 . E ssential hypertension - I10 5 . D yslipidemia - E78.5 6 . S creening for prostate cancer - Z12.5 7 . I josi deficiency anemia - D50.9 Plan: * Treatment: * Labs: * L ab: H-Lipid Panel (Collection Date & Time - 01/22/2025 08:04 AM) t rigs 177 Value Reference Range T RIG 177 H 30-150 - mg/dl * C HOL 172 140-200 - mg/dl * D LDL 80.78 L 100-129 - mg/dL * V LDL 35 0-40 - mg/dL * H DL 52 40-60 - mg/dl * C HLHDL 3.3 1-3.5 - * Xiang Morris 01/26/2025 8 :55:15 AM >See phone encounter ?Lab: H-PSA (Collection Date & Time - 01/22/2025 08:04 AM)?Normal* Value Reference Range P SASC 1.7 0.0-4.0 - ng/ml * Xiang Morris 01/26/2025 8 :55:15 AM >See phone encounter ?Lab: H-CMP (Collection Date & Time - 01/22/2025 08:04 AM)?cl 110, gluc 101, a/g 2* Value Reference Range N A 139 136-145 - mmol/L * K 4.2 3.5-5.1 - mmoL/L * C L 110 H 98-107 - mmol/L * C O2 23 22.0-30.0 - mmol/L * G AP 10.2 5-15 - mEq/L * B UN 16 9-20 - mg/dl * C REATT 0.90 0.66-1.25 - mg/dl * G FRAA 103 >60 - ML/MIN * E GFR 85 >60 - ml/min * G FRACISCO 101 H 74-100 - mg/dl * C A 9.5 8.4-10.2 - mg/dl * B ILIT 0.5 0.2-1.3 - mg/dl * A ST 23 17-59 - U/L * A LT 22 12-78 - U/L * T P 6.8 6.3-8.2 - g/dl * A LB 4.5 3.5-5.0 - g/dl * G LOB 2.3 1.3-3.2 - g/dL * A GRATIO 2.0 H 1.1-1.8 - * A LP 94 38-126 - U/L * Xiang Morris 01/26/2025 8 :55:15 AM >See phone encounter ?Lab: H-CBC (Collection Date & Time - 01/22/2025 08:04 AM)?rbc 4.42, hgb 12.3, hct 37.6, mpv 11.1* Value Reference Range W BC 6.7 4.8-10.8 - K/mm3 * R BC 4.42 L 4.60-6.20 - M/mm3 * H GB 12.3 L 14.1-18.0 - g/dL * H CT 37.6 L 42.0-52.0 - % * M CV 85.1 80-94 - fl * M CH 27.8 27.0-31.2 - pg * M CHC 32.7 31.8-35.4 - g/dL * R DW 13.8 11.5-17.5 - % * P LT 226 142-424 - K/mm3 * M PV 11.1 H 7.4-10.4 - fl * N E% 60.3 37.0-80.0 - % * L Y% 29.4 10-50 - % * M O% 7.3 1.7-9.3 - % * E O% 2.5 0.1-12.0 - % * B A% 0.4 0.1-2.0 - % * N E# 4.0 1.8-7.8 - K/mm3 * L Y# 2.0 0.7-4.5 - K/mm3 * M O# 0.5 0.1-1.0 - K/mm3 * E O# 0.2 0.0-0.4 - K/mm3 * B A# 0.0 0-0.2 - K/mm3 * Xiang Morris 01/26/2025 8 :55:15 AM >See phone encounter ?Lab: H-VITAMIN D (Collection Date & Time - 01/22/2025 08:04 AM)?37.6* Value Reference Range T VITD 37.6 30-100 - ng/mL * Xiang Morris 01/26/2025 8 :55:15 AM >See phone encounter ?Lab: H-Iron (Collection Date & Time - 01/22/2025 08:04 AM)?Normal* Value Reference Range F E 101 49-181 - ug/dL * Xiang Morris 01/26/2025 8 :55:15 AM >See phone encounter * Procedure Codes: G 2211 Complex e/[place], [address] [place], 3077F SYST BP = 140 MM HG6 IT, 3079F DIAST BP 80-89 MM HG * Follow Up: 6 Months * Images: Billing Information: * Visit Code: 92103 Office Visit, Est Pt., Level 4. * Procedure Codes: G2211 Complex e/[place] [address] [place]. 3077F SYST BP = 140 MM HG6 IT. 3079F DIAST BP 80-89 MM HG. * Electronic signature of Xiang Morris MD on 07/23/2025 at 07:51 AM EDT Sign off status: Pending * Provider: Xiang Morris M.D. Date: 0 01/21/2025 Generated for Courtney lemus/Velma/eTransmitting on: 0 07/23/2025 07:51 AM EDT History and Physical Notes * HPI (History of Present Illness) Category Sub-Category Detail Notes Category Not es Cardiology He is due for r outine blood work HPI I have reviewed the most recent CME compliance report and he has been over 90% compliant with use of the CPAP. He subjectively reports excellent benefit with increased energy and decrease in daytime drowsiness. Examination Category Sub-Category Detail Notes Category Not es Cardiology Lungs: clear, no rales or wheezes Heart sounds: RRR, normal S1, S2 Extremities: bilateral lipedema. No drainage Murmur, click , gallop: none General Appearance: pleasant, NAD.
--- OUTSIDE RECORDS SUMMARY | 2025-07-22 11:15 | XMS_ITS ---
Author Organization [facility] Address [address] [place] [phone] Care Team Providers Care Motion Picture Set Up Worker Name Role Phone Xiang Morris Primary Care Provider Allergies Allergen (clinical drug ingredient) Drug/Non Drug Allergy documented on EMR Reaction Allergy Type Onset Date Status ezetimibe / simvastatin Vytorin muscle aches Drug Allergy Active pravastatin Pravastatin muscle aches Drug Allergy Active REASON FOR VISIT check up and blood work Medications Medication SIG (Take, Route, Frequency, Duration) Notes Start Date End Date Status Irbesartan 300 MG 0.5 tab orally once a day Active Rosuvastatin Calcium 5 MG 1 tab(s) orall y once a day Active Omeprazole 20 MG 1 capsule 1/2 to 1 h our before morning meal Orally Once a day; Duration: 30 day(s) 01/26/2025 Active CareTouch CPAP & BIPAP Hose 1 DIRECTED 09/09/20 20 Active Lasix 40 MG 1 tab(s) orally once a day Active Ferrous Sulfate 325 (65 Fe) MG 1 tab(s) orally once daily 10/18/2022 Active AutoPAP - 09/06 as directed as directed 05/14/2024 Active Ezetimibe 10 MG 1 tablet Orally Once a day Active ZyrTEC Allergy 10 MG 1 tab(s) orally onc e a day; Duration: 90 days Active Vitamin D3 125 MCG (5000 UT) 1 tablet Orally Once a day Active Metamucil Premium Blend 52.63 % as directed Orally Active PriLOSEC OTC 20 MG 1 tablet 30 minutes before morning meal Orally Two times a day; Duration: 90 days Active Aspirin 81 81 MG 1 tablet Orally Once a day; Duration: 30 day(s) Active Vital Signs Blood pressure systolic 120 mm Hg 07/22/20 25 Blood pressure diastolic 72 mm Hg 025 Heart Rate 51 /min 07/22/2025 Height 70.25 in 07/22/2025 Weight 255.8 lbs 07/22/2025 BMI 36.44 kg/m2 07/22/2025 Encounters Encounter Location Date Provider Diagnosis [facility] [address] [place] [id number] 07/22/2025 R Dominik Morris Essential hypertensi on I10 ; Dyslipidemia E78.5 ; BRYNN (obstructive sleep apnea) G47.33 ; Vitamin D deficiency E55.9 ; Peripheral polyneuropathy G62.9 and Iron deficiency anemia D50.9 Assessments Encounter Date Diagnosis (ICD Code) Assessment Notes Treatment Notes Treatment Clinical Notes Section Notes 07/22/2025 Essential hypertension (ICD-10 - I10) 07/22/2025 Dyslipidemia (ICD-10 - E78.5) 07/22/2025 BRYNN (obstructive sleep apnea) (ICD-10 - G47.33) 07/22/2025 Vitamin D deficiency (ICD-10 - E55.9) 07/22/2025 Peripheral polyneuropathy (ICD-10 - G62.9) 07/22/2025 Iron deficiency anemia (ICD-10 - D50.9) Plan Of Treatment Medication Medication Name Sig Start Date Stop Date Notes Irbesartan 300 MG 0.5 tab orally once a day Rosuvastatin Calcium 5 MG 1 tab(s) orally once a day Ferrous Sulfate 325 (65 Fe) MG 1 tab(s) orally once daily 10/18/2022 AutoPAP - 09/06 as directed as directed 05/14/2024 Ezetimibe 10 MG 1 tablet Orally Once a day Vitamin D3 125 MCG (5000 UT) 1 tablet Orally Once a day Pending Test Test Name Order Date H-CBC 07/22/2025 H-Lipid Panel 07/22/2025 H-CMP 07/22/2025 H-Iron 07/22/2025 H-Vitamin D 1,25 07/22/2025 Next Appt Details Follow Up: 6 Months, Reason: Progress Notes * KADE GLEZ:1960 (65 yo M)Acc No.[id number]:07/22/2025 Progress Notes Patient: ABEL PETTY Provider: Xiang Morris M.D. :1960 A ge:65 Y S ex:Male Date:07/22/2025 Address:[address] [place] [address] Subjective: * Chief Complaints: * 1 . Check up and blood work. * HPI: C ardiology: Abel comes in for scheduled checkup and is due for blood work. He has had a dramatic 90 pound weight loss since his last visit after he and his both started a new diet and exercise regimen. Denies : Chest Pain. D enies : Short of Breath. D enies : Palpitations. * ROS: D ERMATOLOGY: no R ivana. [...] Leg 04/2022. * Hospitalization/Major Diagno stic Procedure: Alona marvin- [facility] ER 05/23/2013, Broken Tibia and Fibia [...] 1 DIRECTED , Taking AutoPAP - - 10/20 as directed as directed , Taking Omeprazole 20 MG Capsule Delayed Release 1 capsule 1/2 to 1 hour before morning meal Orally Once a day , Taking PriLOSEC OTC 20 MG Tablet Delayed Release 1 tablet 30 minutes before morning meal Orally Two times a day , Taking Ezetimibe 10 MG Tablet 1 tablet Orally Once a day , Taking Irbesartan 300 MG Tablet 0.5 tab orally once a day , Taking Rosuvastatin Calcium 5 MG Tablet 1 tab(s) orally once a day , Medication List reviewed and reconciled with the patient * Allergies: V ytorin: muscle aches, Pravastatin: muscle aches. Objective: * Vitals: W t: 255.8, Temp: 98.6, BP: 120/72, HR: 51, O2 Sat: 98% on RA, Nurse: marla, Ht: 70.25, BMI:36.44. * Examination: C ardiology: General Appearance: p leasant, NAD. Note weight loss.?Heart sounds: R RR, normal S1, S2. M urmur, click , gallop: n one. L ungs:?clear, no rales or wheezes. E xtremities: b ilateral lipedema. No drainage. ? Assessment: * Assessment: 1. E ssential hypertension - I10 (Primary) 2 . D yslipidemia - E78.5 ? 3 . O SA (obstructive sleep apnea) - G47.33 4 . V itamin D deficiency - E55.9 5 . P eripheral polyneuropathy - G62.9 6 . I josi deficiency anemia - D50.9 Plan: * Treatment: 2. D yslipidemia Continue Ezetimibe Tablet, 10 MG, 1 tablet, Orally, Once a day; C ontinue Rosuvastatin Calcium Tablet, 5 MG, 1 tab(s), orally, once a day. 3. O SA (obstructive sleep apnea) Continue AutoPAP -, -, 09/06, as directed, as directed. 4. V itamin D deficiency Continue Vitamin D3 Tablet Chewable, 125 MCG (5000 UT), 1 tablet, Orally, Once a day. 5. I josi deficiency anemia Continue Ferrous Sulfate Tablet Delayed Release, 325 (65 Fe) MG, 1 tab(s), orally, once daily. * Labs: * L ab: H-Lipid Panel L ab: H-CMP L ab: H-CBC L ab: H-Iron L ab: H-Vitamin D 1,25 * Follow Up: 6 Months * Images: Billing Information: * Visit Code: 60791 Office Visit, Est Pt., Level 4. * Procedure Codes: * Electronic signature of Xiang Morris MD on 07/23/2025 at 07:51 AM EDT Sign off status: Pending * Provider: Xiang Morris M.D. Date: 07/22/2025 Generated for Courtney lemus/Velma/Davisitting on: 07/23/2025 07:51 AM EDT History and Physical Notes * HPI (History of Present Illness) Category Sub-Category Detail Notes Category Not es Cardiology Short of Breath Chest Pain Palpitations Examination Category Sub-Category Detail Notes Category Not es Cardiology Lungs: clear, no rales or wheezes Heart sounds: RRR, normal S1, S2 Extremities: bilateral lipedema. No drainage Murmur, click , gallop: none General Appearance: pleasant, NAD. Note weight loss
--- OUTSIDE RECORDS SUMMARY | 2025-07-23 07:51 | XMS_ITS | Patient Health Record ---
Author Organization [facility] Address [address] [place] [id number] Care Team Providers Care Securities Dealer Name Role Phone Xiang Morris Primary Care [...] Performing Lab: Notes/Report: FE [phone] ug/dL Medications Medication SIG (Take, Route, Frequency, Duration) Notes Start Date End Date Status Ferrous Sulfate 325 (65 Fe) MG 1 tab(s) orally once daily 10/18/2022 Active AutoPAP - 09/06 as directed as directed 05/14/2024 Active Metamucil Premium Blend 52.63 % as directed Orally Active Ezetimibe 10 MG 1 tablet Orally Once a day Active PriLOSEC OTC 20 MG 1 tablet 30 minutes before morning meal Orally Two times a day; Duration: 90 days Active Lasix 40 MG 1 tab(s) orally once a day Active ZyrTEC Allergy 10 MG 1 tab(s) orally onc e a day; Duration: 90 days Active Vitamin D3 125 MCG (5000 UT) 1 tablet Orally Once a day Active Aspirin 81 81 MG 1 tablet Orally Once a day; Duration: 30 day(s) Active Irbesartan 300 MG 0.5 tab orally once a day Active Rosuvastatin Calcium 5 MG 1 tab(s) orall y once a day Active Omeprazole 20 MG 1 capsule 1/2 to 1 h our before morning meal Orally Once a day; Duration: 30 day(s) 01/26/2025 Active CareTouch CPAP & BIPAP Hose 1 DIRECTED 09/09/20 20 Active Immunizations Vaccine Route Administration Date Status Comme nts COVID 19 Xavier Unknown 01/25/2021 Administered COVID 19 Moderna Unknown 09/19/2021 Administered COVID 19 Moderna Unknown 06/14/2022 Administered Flublok IM Intramuscular 08/19/2020 Administered Fluzone PF Quad (6-35 months) Unknown 08/28/2022 Administered Fluzone Quad (6months&older) IM Intramuscular 09/07/2015 Administered Fluzone Quad (6months&older) IM Intramuscular 10/13/2016 Administered Fluzone Quad (6months&older) IM Intramuscular 09/02/2017 Administered Fluzone Quad (6months&older) IM Intramuscular 09/18/2018 Administered Fluzone Quad (6months&older) IM Intramuscular 09/11/2019 Administered Fluzone Quad (6months&older) IM Intramuscular 09/09/2021 Administered Fluzone Quad (6months&older) IM Intramuscular 09/20/2023 Administered Fluzone Quad (6months&older) IM Intramuscular 08/24/2024 Administered Tetanus Tdap-Adacel (over 7yrs) IM Intramuscular 02/25/2014 Administered Tetanus Tdap-Adacel (over 7yrs) Unknown 04/23/2022 Administered xFlu shot-36 months and older IM Intramuscular 09/27/2006 Administered xFlu shot-36 months and older IM Intramuscular 09/16/2007 Administered xFlu shot-36 months and older IM Intramuscular 09/07/2008 Administered xFluzone (6mos and older)-trivalent IM Intramuscular 08/25/2010 Administered xFluzone (6mos and older)-trivalent IM Intramuscular 09/12/2012 Administered xFluzone (6mos and older)-trivalent IM Intramuscular 09/22/2013 Administered xFluzone (6mos and older)-trivalent IM Intramuscular 09/03/2014 Administered Problems Problem Type SNOMED Code ICD Code Onset Dates Problem Status W/U Status Risk Notes Problem Gastroesophageal reflux disease (915624275) GERD (gastroesophageal reflux disease) (K21.9) Active confirmed Problem Vitamin D deficiency (10676118) Vitamin D deficiency (E55.9) Active confirmed Problem Essential hypertension (09624163) Essential hypertension (I10) Active confirmed Problem Morbid obesity (842883505) Morbid obesity (E66.01) Active confirmed Problem Body mass index 40+ - severely obese (300300780) BMI 50.0-59.9, adult (Z68.43) Active confirmed Problem Iron deficiency anemia (24917945) Iron deficiency anemia (D50.9) Active confirmed Problem Lymphedema (62088133) Lymphedema (I89.0) Active confirmed Problem Primary generalised osteoarthritis (958023075) Primary generalized (osteo)arthritis (M15.0) Active confirmed Problem Mixed hyperlipidemia (288263290) Mixed hyperlipidemia (E78.2) Active confirmed Problem Hypersomnia (72697710) Hypersomnia, unspecified (G47.10) Active confirmed Problem Sleep apnea (83946168) Sleep apnea, unspecified (G47.30) Active confirmed Problem Gastroesophageal reflux disease without esophagitis (241343638) Gastroesophageal reflux disease without esophagitis (K21.9) Active confirmed Problem Inflammatory and toxic neuropathy (317683115) Peripheral polyneuropathy (G62.9) Active confirmed Problem Obstructive sleep apnea syndrome (88762958) BRYNN (obstructive sleep apnea) (G47.33) Active confirmed Problem Carpal tunnel syndrome of left wrist (655756206438977) Carpal tunnel syndrome of left wrist (G56.02) Active confirmed Problem Dyslipidemia (414152316) Dyslipidemia (E78.5) Active confirmed Problem Seasonal allergic rhinitis (661876259) Seasonal allergic rhinitis, unspecified allergic rhinitis trigger (J30.2) Active confirmed Problem Age-related cataract (20078999) Age-related cataract of both eyes, unspecified age-related cataract type (H25.9) Active confirmed Vital Signs Heart Rate 51 /min 07/22/2025 Blood pressure diastolic 72 mm Hg 07/22/2025 Height 70.25 in 07/22/2025 Blood pressure systolic 120 mm Hg 07/22/2025 Weight 255.8 lbs 07/22/2025 BMI 36.44 kg/m2 07/22/2025 Encounters Encounter [facility] Date [facility] [id number] [facility] R Dominik Morris [address] [id number] 09/10/2024 R Dominik Morris BRYNN (obstructive sle ep apnea) G47.[address] [id number] 01/21/2025 R Dominik Morris BRYNN (obstructive sle ep apnea) G47.33 ; Vitamin D deficiency E55.9 ; Peripheral polyneuropathy G62.9 ; Essential hypertension I10 ; Dyslipidemia E78.5 ; Screening for prostate cancer Z12.5 and Iron deficiency anemia D50.[address] [id number] 07/22/2025 R Dominik Morris Essential hypertensi on I10 ; Dyslipidemia E78.5 ; BRYNN (obstructive sleep apnea) G47.33 ; Vitamin D deficiency E55.9 ; Peripheral polyneuropathy G62.9 and Iron deficiency anemia D50.9 [facility] [address] [place], [place] [id number] 06/08/2025 R Dominik Alexandra [facility] [address] [place] [id number] 08/04/2024 R Dominik Alexandra [facility] [address] [place], [place] [id number] 12/10/2024 R Dominik Alexandra Dyslipidemia E78.5 [facility] [address] [place], [place] [id number] 01/26/2025 R Dominik Alexandra [facility] [address] [place], [place] [id number] 03/08/2025 R Dominik Alexandra Dyslipidemia E78.5 [facility] [address] [place], [place] [id number] 05/06/2025 R Dominik Alexandra Assessments Encounter Date Diagnosis (ICD Code) Assessment Notes Treatment Notes Treatment Clinical Notes Section Notes 09/10/2024 BRYNN (obstructive sleep apnea) (ICD-10 - G47.33) Patient is consistently using CPAP machine and is getting excelllent benefit See enclosed report 12/10/2024 Dyslipidemia (ICD-10 - E78.5) 01/21/2025 Vitamin D deficiency (ICD-10 - E55.9) 01/21/2025 BRYNN (obstructive sleep apnea) (ICD-10 - G47.33) Patient is consistently using CPAP machine and is getting excelllent benefit See enclosed report 03/08/2025 Dyslipidemia (ICD-10 - E78.5) 07/22/2025 Essential hypertension (ICD-10 - I10) 07/22/2025 Dyslipidemia (ICD-10 - E78.5) 07/22/2025 BRYNN (obstructive sleep apnea) (ICD-10 - G47.33) 01/21/2025 Peripheral polyneuropathy (ICD-10 - G62.9) 01/21/2025 Essential hypertension (ICD-10 - I10) 07/22/2025 Vitamin D deficiency (ICD-10 - E55.9) 01/21/2025 Dyslipidemia (ICD-10 - E78.5) 07/22/2025 Peripheral polyneuropathy (ICD-10 - G62.9) 07/22/2025 Iron deficiency anemia (ICD-10 - D50.9) 01/21/2025 Screening for prostate cancer (ICD-10 - Z12.5) 01/21/2025 Iron deficiency anemia (ICD-10 - D50.9) Plan Of Treatment Pending Test Test Name Order Date colonoscopy 05/14/2023 H-CBC 07/22/2025 H-Lipid Panel 07/22/2025 H-CMP 07/22/2025 H-Iron 07/22/2025 H-Vitamin D 1,25 07/22/2025 Insurance Providers Payer Name Payer Address Payer Phone Subscriber Number Group Number Insured Name Patient Relationship to Insured Coverage Start Date Coverage End Date MEDICARE PART B [address] [address] [place] [id number] MAGY NELSON Self - patient is the insured [employer] MEDICARE [address] [place] [address] [id number] MAGY NELSON Self - patient is the insured Medications Administered Medication Instructions Date of Administration Dosage Notes Depo- Medrol 40 mg/ml 03/19/2013 1.5 mL Dexamethasone 11/29/2009 1 mL Dexamethasone 04/28/2013 1 mL Dexamethasone 06/04/2019 1 mL Medical (General) History Medical History History ICD Code Hypertension Hyperlipidemia GERD Osteo Arthritis Cataracts Osteomyelitis left foot Peripheral neuropathy Surgical History Surgery Date(Month/Year) RT Carpal Tunnel Release 1993 Tonsillectomy Adenoidectomy Amputation distal phalanx le ft second toe for osteomyelitis - Dr. Alaniz 06/20/2021 Broken Tibia and Fibia of the Right Leg 04/2022 Hospitalization History Reason Date(Month/Year) Broken Tibia and Fibia of the Right Leg 04/2022 [facility] 05/23/2013
--- OUTSIDE RECORDS SUMMARY | 2025-07-23 07:51 | XMS_ITS | Clinical Summary ---
Author Organization 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 Active ezetimibe (ZETIA) 10 mg tablet Take by mouth daily. Active omega-3 acid ethyl esters (LOVAZA) 1 gram capsule Take 2 g by mouth 2 times daily. Active aspirin 81 mg tablet Take 81 mg by mouth daily. Active RABEprazole (ACIPHEX) 20 mg tablet Take by mouth daily. Active desloratadine (CLARINEX) 5 mg tablet Take by mouth daily. Active MULTIVITAMIN ORAL Take 1 daily Active UNABLE TO FIND Allergy shots every 3 weeks Active Active Problems Problem Noted Date Diagnosed Date HTN (hypertension) 01/15/2013 BRYNN (obstructive sleep apnea) 01/15/2013 Obesity 01/15/2013 Chest pain 01/15/2013 Dyslipidemia 01/15/2013 Surgical History Surgery Date Site/Laterality Comments CARPAL TUNNEL RELEASE WRIST SURGERY RECTAL SURGERY Medical History Medical History Date Comments Hyperlipidemia Hypertension Heartburn Family History Medical History Relation Name Comments High Blood Pressure Brother High Cholesterol Brother High Blood Pressure Father High Cholesterol Father Heart Attack Maternal Uncle 50s Heart Disease Maternal Uncle High Blood Pressure Mother High Cholesterol Mother High Blood Pressure Sister High Cholesterol Sister Relation Name Status Comments Brother Father Maternal Uncle Mother Sister Social History Tobacco Use Types Packs/Day Years Used Date Smoking Tobacco: Never Alcohol Use Standard Drinks/Week Comments No 0 (1 standard drink = 0.6 oz pur e alcohol) Sex and Gender Information Value Date Recorded Sex Assigned at Not on file Legal Sex Male 11:15 PM EDT Gender Identity Not on file Sexual Orientation Not on file Obstetrics History Last Filed Vital Signs Vital Sign Reading Time Taken Comments Blood Pressure 105/64 02/06/2013 12:00 PM EDT Pulse 57 02/06/2013 12:00 PM EDT Temperature 36.8 C (98.2 F) 02/06/2013 7:51 AM EDT Respiratory Rate 21 02/06/2013 12:00 PM EDT Oxygen Saturation 100% 02/06/2013 12:00 PM EDT Inhaled Oxygen Concentration - - Weight 145.6 kg (321 lb) 02/06/2013 7:51 AM EDT Height 182.9 cm (6') 02/06/2013 7:51 AM EDT Body Mass Index 43.54 02/06/2013 7:51 AM EDT Plan of Treatment Health Maintenance Due Date Last Done Comments Annual Wellness Exam 1963 Hepatitis C Screening 1978 DTaP/TDaP/Td (1 - Tdap) 1979 Cologuard 2005 Colon Cancer Screening 2005 Colonoscopy 2005 FIT 2005 Sigmoidoscopy 2005 Virtual Colonography 2005 Pneumococcal Vaccine 50+ (1 of 1 - PCV) 2010 Zoster (1 of 2) 2010 COVID-19 Vaccine (1 - 2023-2 5 season) 2025 Influenza Vaccine (#1) 2025 Hepatitis B Vaccine Aged Out No longe r eligible based on patient's age to complete this topic Meningococcal B Vaccine Aged Out No l onger eligible based on patient's age to complete this topic Insurance [address] [place], [place] [address] [id number] [facility] [place] [address] [place] [id number] [facility] PPO
--- OUTSIDE RECORDS SUMMARY | 2025-07-23 07:51 | XMS_ITS | Clinical Summary ---
Author Organization Healthcare Address [address] [place] [address] Care Team Providers Care Livestock Farm Manager Name Role Phone Michael Morris MD Primary Care Provider [phone] Allergies No known active allergies Medications aspirin 81 MG chewable tablet Chew 1 tablet (81 mg) 1 (one) time each day. Active multivitamin with minerals (Cerovite) 18-400 mg-mcg tablet tablet Take 1 tablet by mouth 1 (one) time each day. Active ezetimibe (Zetia) 10 MG tablet Take 1 tablet (10 mg) by mouth 1 (one) time each day. Active montelukast (Singulair) 10 MG tablet Take 10 mg by mouth 1 (one) time each day in the evening. 01/26/2022 Active omeprazole (PriLOSEC) [address] capsule Take 1 capsule (40 mg) by mouth 1 (one) time each day. 01/05/2022 Active rosuvastatin (Crestor) 5 MG tablet Take 1 tablet (5 mg) by mouth 1 (one) time each day. 03/24/2022 Active calcium-vitamin D 500-200 MG-UNIT tablet Take 1 tablet by mouth 1 (one) time each day. Active acetaminophen (Tylenol) 500 MG tablet Take 2 tablets (1,000 mg total) by mouth every 6 (six) hours if needed for mild pain 1-3 for up to 50 doses. 100 tablet 04/26/2022 Active ibuprofen 400 MG tablet Take 1 tablet (400 mg total) by mouth every 6 (six) hours if needed for moderate pain for up to 50 doses. 50 tablet 04/26/2022 Active traMADol (Ultram) 50 MG tablet Take 1 tablet (50 mg total) by mouth every 8 (eight) hours if needed for severe pain for up to 25 doses. 25 tablet 04/26/2022 Active gabapentin (Neurontin) 100 MG capsule Take 1 capsule (100 mg total) by mouth 3 (three) times a day. 42 capsule 05/17/2022 Active methocarbamol (Robaxin) 500 MG tablet Take 1.5 tablets (750 mg total) by mouth 4 (four) times a day for 8 days. 50 tablet 05/17/2022 Active traMADol (Ultram) 50 MG tablet Take 1 tablet (50 mg total) by mouth every 8 (eight) hours if needed for severe pain. 25 tablet 05/17/2022 Active irbesartan (Avapro) 150 MG tablet TAKE 1 TABLET BY MOUTH ONCE DAILY FOR 90 DAYS 06/28/2022 Active FeroSul 325 (65 Fe) MG tablet TAKE 1 TABLET BY MOUTH ONCE DAILY FOR 30 DAYS 11/16/2022 Active Active Problems Problem Noted Date Diagnosed Date Morbid obesity with body mass index (BMI) of 40. 0 or higher 06/04/2022 Displaced pilon fracture of right tibia, init fo r clos fx 05/16/2022 Overview (05/16/2022): Added automatically from request for surgery [id number] Open pilon fracture, right, type I or II, initia l encounter 05/11/2022 Displaced pilon fx right tibia, init for opn fx type I/2 05/02/2022 Overview (05/02/2022): Added automatically from request for surgery [id number] Fracture 04/23/2022 Type I or II open fracture of right tibia and fi bula 04/23/2022 Overview (04/24/2022): Added automatically from request for surgery [id number] Mixed hyperlipidemia 08/07/2021 Neuropathy 06/02/2021 Venous stasis 06/02/2021 Essential hypertension 01/15/2013 Obesity 01/15/2013 BRYNN (obstructive sleep apnea) 01/15/2013 Immunizations Immunization Administration Dates Next Due Tdap 04/23/2022 Family History Medical History Relation Name Comments Diabetes Brother Heart attack Father Heart failure Mother Relation Name Status Comments Brother Father Mother Social History Tobacco Use Types Packs/Day Years Used Date Smoking Tobacco: Never Smokeless Tobacco: Never Tobacco Cessation:Counseling Given: Not Answered Alcohol Use Standard Drinks/Week Comments Never 0 (1 standard drink = 0.6 oz pur e alcohol) PHQ-2 Answer Date Recorded Patient Health Questionnaire-2 Score 0 11/21/2022 PHQ-2A Answer Date Recorded Patient Health Questionnaire-2 Score 0 11/21/2022 Sex and Gender Information Value Date Recorded Sex Assigned at Not on file Legal Sex Male 8:19 PM EDT Gender Identity Not on file Sexual Orientation Not on file Last Filed Vital Signs Vital Sign Reading Time Taken Comments Blood Pressure 164/93 12/31/2023 11:29 AM EST Pulse 78 12/31/2023 11:29 AM EST Temperature 36.8 C (98.2 F) 05/22/2023 7:53 AM EDT Respiratory Rate 28 05/17/2022 3:00 PM EDT Oxygen Saturation 99% 05/22/2023 7:53 AM EDT Inhaled Oxygen Concentration - - Weight 141 kg (310 lb) 12/31/2023 11:29 AM EST Height 181.6 cm (5' 11.5 ) 12/31/2023 11:[address] Body Mass Index 42.63 12/31/2023 11:29 AM EST Plan of Treatment Health Maintenance Due Date Last Done Comments [facility]-Infant/Child/Adol SDOH Screenings 1960 [facility]- SDOH Screenings 1978 [facility]-Adult SDOH Screenings 1978 CT Colonography 2005 Colonoscopy 2005 FIT-DNA 2005 FIT 2005 FOBT 2005 Sigmoidoscopy 2005 [facility]-Colorectal Cancer Screening 2005 [facility]-Pneumococcal Vaccine: 50+ Years (1 of 1 - PCV) 2010 [facility]-Zoster Vaccines (1 of 2) 2010 [facility]-Depression Screening 11/21/2023 11/21/2022 [id number] Vaccine ( season) 2024 10/19/2022, 06/14/2022, 09/19/2021, Additional history exists [facility]-Influenza Vaccine (#1) 07/19/202508/28, 09/09/2021, 08/19/2020, Additional history exists [facility]-DTaP,Tdap,and Td Vaccines (2 - Td or Tdap) 04/23/2032 04/23/2022 [facility]-Hepatitis C Screening Completed 04/23/2022 [facility]-RSV Vaccine: 60+ Years or Completed 11/04/2023 [facility]-Obesity Intervention Completed 024, 12/31/2023, 05/22/2023, Additional history exists HPV Vaccines Aged Out No longer eligi ble based on patient's age to complete this topic [facility]-HIB Vaccines Aged Out No longer e ligible based on patient's age to complete this topic [facility]-Hepatitis A Vaccines Aged Out No longer eligible based on patient's age to complete this topic [facility]-IPV Vaccines Aged Out No longer e ligible based on patient's age to complete this topic [facility]-Rotavirus Vaccines Aged Out No lo nger eligible based on patient's age to complete this topic Medical Devices Implanted Type Area Charting Clerk Device Identifier Shelf Expiration Date Model / Serial / Lot Plate 3.5mm Medial Dist Tibia 12 Hle Rgt - [id number] Implanted:Qty : 1 on 05/17/2022 by Eran Byrd MD at [facility] Plate Right: Ankle [employer] [id number] 05/17/2023 223.512 / / Plate Dist Lat Tib 18h Rt - [id number] Implanted:Qty : 1 on 05/17/2022 by Eran Byrd MD at [facility] Plate Right: Ankle [place] [id number] 05/17/2023 [id number] / / Screw 3.5mm Cortex Selftap 44mm - [id number] Implanted:Qty : 1 on 05/17/2022 by Eran Byrd MD at [facility] Screw Right: Ankle [employer] [id number] 05/17/2023 204.844 / / Screw 3.5mm Cortex Selftap 40mm - [id number] Implanted:Qty : 1 on 05/17/2022 by Eran Byrd MD at [facility] Screw Right: Ankle [employer] [id number] 05/17/2023 204.840 / / Screw 3.5mm Cortex Selftap 46mm - [id number] Implanted:Qty : 2 on 05/17/2022 by Eran Byrd MD at [facility] Screw Right: Ankle Synthes [facility]-[id number] 05/17/2023 204.846 / / Screw 3.5mm Cortex Selftap 44mm - [id number] Implanted:Qty : 1 on 05/17/2022 by Eran Byrd MD at [facility] Screw Right: Ankle [employer]ynthes [facility]-[id number] 05/17/2023 204.844 / / Screw 3.5mm Cortex Selftap 30mm - [id number] Implanted:Qty : 1 on 05/17/2022 by Eran Byrd MD at [facility] Screw Right: Ankle [employer]s [facility]-[id number] 05/17/2023 204.830 / / Clamp Adj Lg Mri Safe None - [id number] Implanted:Qty : 5 on 04/24/2022 by Deacon Wolfe MD at [facility]-[id number] 390.008 / / Screw Schanz 5mm X 200mm - [id number] Implanted:Qty : 2 on 04/24/2022 by Deacon Wolfe MD at [facility]-[id number] 294.56 / / Logan Carbon Fbr 11 X 500mm - [id number] Implanted:Qty : 2 on 04/24/2022 by Deacon Wolfe MD at [facility] [employer] [facility]-[id number] 394.89 / / Screw 3.5mm Cortex Selftap 28mm - [id number] Implanted:Qty : 4 on 05/17/2022 by Eran Byrd MD at [facility] Right: Ankle [employer]ynthes [facility]-[id number] 05/17/2023 204.828 / / Screw 3.5mm Cortex Selftap 24mm - [id number] Implanted:Qty : 1 on 05/17/2022 by Eran Byrd MD at [facility] Right: Ankle [employer]ynthes [facility]-[id number] 05/17/2023 204.824 / / Explanted Type Area Charting Clerk Device Identifier Shelf Expiration Date Model / Serial / Lot Screw 3.5mm Cortex Selftap 38mm - [id number] Explanted:Qty: 1 on 05/17/2022 at [facility] Right: Ankle Synthes [facility]-[id number] 05/17/2023 204.838 / / Procedures Procedure Name Priority Date/Time Associated Diagnosis Comments HEPATITIS C ANTIBODY - ED W/REFLEX TO HCV QUANT PCR STAT 04/23/2022 6:24 PM EDT from Last 3 Months or Most Recently Relevant to Health Maintenance Results * [place] Hepatitis C Antibody (04/23/2022 6:24 PM EDT) Hepatitis C Antibody Negative Negative 04/23/2022 8:05 PM EDT [facility] Blood Venous blood specimen / Unknown Venipuncture / Unknown 04/23/2022 6:24 PM EDT 04/23/2022 6:57 PM EDT Billy Arrieta MD LAB BLOOD ORDERABLES Final Result Performing Organization Address City/State/[facility] Co dc Phone Number [facility]ARE [facility] [address] [place] [address] from Last 3 Months or Most Recently Relevant to Health Maintenance Insurance [facility] [employer] Advance Directives * Full Code (Latest Code Status on File) Date Activated Date Inactivated Comments 05/17/2022 10:17 AM 05/17/2022 7:06 PM Question Answer Comments Patient has decision-making capacity? Yes Care Teams Livestock Farm Manager Relationship Specialty Start Date End Date Michael Morris MD [address] [address] [place] [id number] PCP - General 04/23/22
--- OUTSIDE RECORDS SUMMARY | 2025-07-23 07:52 | XMS_ITS | Clinical Summary ---
Author Organization [facility] Address [address] [place] [address] Care Team Providers Care Data Clerk Name Role Phone Michael Morris MD Primary Care Provider Allergies Active Allergy Reactions Criticality Noted Date Comments Ezetimibe-Simvastatin Other (See Comments) 01/16 muscle ache Pravastatin Other (See Comments) 01/25/2025 Muscle ache Medications Omeprazole 20 MG Tablet Delayed Release Dispersible Take 1 tablet by mouth Daily. 11/21/19 16 Active multivitamin with minerals tablet tablet 1 tablet Daily. 11/21/19 11 Active calcium carb-cholecalci ferol 600-800 MG-UNIT tablet 1 tablet Daily. 11/21/19 18 Active ibuprofen (ADVIL,MOTRIN) 800 MG tablet Take 1 tablet by mouth Every 6 (Six) Hours As Needed. for pain 07/25/20 21 Active aspirin 81 MG EC tablet Take 1 tablet by mouth Daily. Active FeroSul 325 (65 Fe) MG tablet Take 1 tablet by mouth Daily. FOR 30 DAYS 11/16/20 22 Active Cholecalciferol (Vitamin D3) 125 MCG (5000 UT) chewable tablet 10/17/20 22 Active omeprazole (priLOSEC) 40 MG capsule Take 1 capsule by mouth Daily 30 Minutes Before Morning Meal. 90 capsule 3 4 3:38 PM EDT 05/14/20 23 Active ferrous sulfate 325 (65 FE) MG EC tablet Take 1 tablet by mouth Daily. 90 tablet 1 3 3:34 PM EDT 05/14/20 23 Active cephalexin (KEFLEX) 500 MG capsule Take 1 capsule by mouth Every 6 (Six) Hours. 60 capsule 03/31/20 25 Active mupirocin (BACTROBAN) 2 % ointment Apply 1 Application topically to the appropriate area as directed Daily. 30 g 5 03/31/20 25 Active Psyllium (Metamucil Premium Blend) 52.63 % powder Take by mouth. Active omeprazole OTC (PrilOSEC OTC) 20 MG EC tablet Every 12 (Twelve) Hours. Active Calcium Carb-Cholecalci ferol (CALCIUM 500 + D PO) Active ezetimibe (ZETIA) 10 MG tablet Take 1 tablet by mouth Daily. 90 tablet 07/07/20 25 Active irbesartan (AVAPRO) 300 MG tablet Take 0.5 tablets by mouth Daily. 45 tablet 07/07/20 25 Active rosuvastatin (CRESTOR) 5 MG tablet Take 1 tablet by mouth Daily. 90 tablet 07/07/20 25 Active omeprazole OTC (PrilOSEC OTC) 20 MG EC tablet Take 1 tablet by mouth 2 (Two) Times a Day Before Meals. 180 tablet 07/07/20 25 Active rosuvastatin (CRESTOR) 5 MG tablet Take 1 tablet by mouth Daily. 90 tablet 1 5 2:23 PM EDT 03/08/20 25 025 Discontinue d(Reorder) alfuzosin (UROXATRAL) 10 MG 24 hr tablet Take 1 tablet by mouth Daily. 90 tablet 3 5 3:51 PM EDT 04/21/20 25 025 Discontinue d(Patient Reported Not Taking) omeprazole (priLOSEC) 20 MG capsule Take 1 capsule by mouth 2 (Two) Times a Day 30 minutes before meal 180 capsule 5 1:35 PM EDT 04/26/20 25 025 Discontinue d(Reorder) ezetimibe (ZETIA) 10 MG tablet Take 1 tablet by mouth Daily 90 tablet 5 12:00 PM EDT 06/07/20 25 025 Discontinue d(Reorder) irbesartan (AVAPRO) 300 MG tablet Take 0.5 tablets by mouth Daily. 15 tablet 5 10:56 AM EDT 06/08/20 25 025 Discontinue d(Reorder) irbesartan (AVAPRO) 300 MG tablet Take 0.5 tablets by mouth Daily. 15 tablet 12:04 PM EDT 07/05/20 25 025 Discontinue d(Reorder) Active Problems Problem Noted Date Diagnosed Date IVCD (intraventricular conduction defect) 2023 Essential hypertension 08/07/2021 Mixed hyperlipidemia 08/07/2021 Localized swelling of lower extremity 08/07/2021 Osteomyelitis of second toe of left foot 021 Lipodermatosclerosis of both lower extremities 0 06/02/2021 Neuropathy 06/02/2021 Venous stasis 06/02/2021 Immunizations Immunization Administration Dates Next Due COVID-19 (ALLAN) 01/25/2021 [place] =>18yrs 08/19/2020 Family History Medical History Relation Name Comments Diabetes Brother Rober Glez Type II Diabetes type II Brother Rober Glez Heart attack Father Ryley Glez Heart failure Mother Sharon Glez Relation Name Status Comments Brother Rober Glez Alive Father Ryley Glez Mother Sharon Glez Alive Social History Tobacco Use Types Packs/Day Years Used Date Smoking Tobacco: Never Passive Smoke Exposure: Never Smokeless Tobacco: Never Tobacco Cessation:Counseling Given: Not Answered Alcohol Use Standard Drinks/Week Comments Never 0 (1 standard drink = 0.6 oz pur e alcohol) Sex and Gender Information Value Date Recorded Sex Assigned at Not on file Legal Sex Male 8:35 AM EST Gender Identity Not on file Sexual Orientation Not on file Last Filed Vital Signs Vital Sign Reading Time Taken Comments Blood Pressure 134/82 04/14/2025 3:37 PM EDT Pulse 68 03/23/2025 10:03 AM EDT Temperature 37 C (98.6 F) 04/28/2023 2:46 PM EDT Respiratory Rate 18 04/28/2023 9:10 PM EDT Oxygen Saturation 100% 03/23/2025 10:03 AM EDT Inhaled Oxygen Concentration - - Weight 147 kg (324 lb 1.2 oz) 04/14/2025 3:37 PM EDT Height 180.3 cm (5' 10.98 ) 04/14/2025 3:37 PM E DT Body Mass Index 45.22 04/14/2025 3:37 PM EDT Plan of Treatment Upcoming Encounters Date Type Department Care Team (Late st Contact Info) Description 03/21/2026 9:45 AM EDT Office Visit [facility] [address] [place] [address] Billy Herrmann MD [address] [place] [address] Health Maintenance Due Date Last Done Comments COLOGUARD 2005 COLON CANCER SCREENING 5 YEA R SIGMOID[address] COLONOGRAPHY 2005 FECAL OCCULT BLOOD TEST 2005 FIT Testing (1 year) 2005 Pneumococcal Vaccine 50+ (1 of 1 - PCV) 2010 ZOSTER VACCINE (1 of 2) 2010 ANNUAL WELLNESS VISIT 06/02/2021 LIPID PANEL 05/22/2024 05/22/2023 COVID-19 Vaccine (5 - 2023-2 5 season) 2024 10/19/2022, 06/14/2022, 09/19/2021, Additional history exists INFLUENZA VACCINE 08/18/2025 08/24/2024, , 09/01/2023, Additional history exists TDAP/TD VACCINES (3 - Td or Tdap) 04/23/2032 022, 02/25/2014 COLONOSCOPY 09/24/2034 09/24/2024, 08/29/2022 COLORECTAL CANCER SCREENING 09/24/2034 HEPATITIS C SCREENING Completed 04/23/2022 Procedures Procedure Name Priority Date/Time Associated Diagnosis Comments SCANNED - COLONOSCOPY 09/24/2024 LIPID PANEL W/ CHOL/HDL RATIO Routine 05/22/2023 9:34 AM EDT Essential hypertension, malignant Hyperlipidemia, unspecified hyperlipidemia type Iron deficiency Avitaminosis D from Last 3 Months or Most Recently Relevant to Health Maintenance Results * Colonoscopy, Scan (09/24/2024) Yoshi Brown MD CHART REVIEW TABS Final Result * Lipid Panel With / Chol / HDL Ratio (05/22/2023 9:34 AM EDT) Total Cholesterol 143 0 - 200 mg/dL 05/22/2023 2:30 PM EDT [facility] Triglycerides 146 0 - 150 mg/dL 05/22/2023 2:30 PM EDT [facility] HDL Cholesterol 49 40 - 60 mg/dL 05/22/2023 2:30 PM EDT [facility] LDL Cholesterol 69 0 - 100 mg/dL 05/22/2023 2:30 PM EDT [facility] VLDL Cholesterol 25 5 - 40 mg/dL 05/22/2023 2:30 PM EDT [facility] Chol/HDL Ratio 2.92 05/22/2023 2:30 PM EDT [facility] Blood Venipuncture / Unknown 05/22/2023 9:34 AM EDT 05/22/2023 9:38 AM EDT Narrative [facility] - 05/22/2023 2:30 PM EDT Cholesterol Reference Ranges (U.S. Department of Health and Human Services ATP III Classifications) Desirable <200 mg/dL Borderline High 200-239 mg/dL High Risk >240 mg/dL Triglyceride Reference Ranges (U.S. Department of Health and Human Services ATP III Classifications) Normal <150 mg/dL Borderline High 150-199 mg/dL High 200-499 mg/dL Very High >500 mg/dL HDL Reference Ranges (U.S. Department of Health and Human Services ATP III Classifications) Low <40 mg/dl (major risk factor for CHD) High >60 mg/dl ('negative' risk factor for CHD) LDL Reference Ranges (U.S. Department of Health and Human Services ATP III Classifications) Optimal <100 mg/dL Near Optimal 100-129 mg/dL Borderline High 130-159 mg/dL High 160-189 mg/dL Very High >189 mg/dL us Michael Morris MD LAB BLOOD ORDERABLES F inal Result [facility]
[address] [place] [address], from Last 3 Months or Most Recently Relevant to Health Maintenance Insurance [facility] MEDICARE A & B [employer] Care Teams Data Clerk Relationship Specialty Start Date End Date Michael Morris MD [address] [place] [address] [place] [id number] PCP - General Family Medicine 05/29/21
[2025-07-23 08:19] LABS: Hematocrit 34.9 % (42.0-52.0); Hemoglobin 11.4 g/dL (14.1-18.0); Immature Granulocytes % 0.3 %; Mean Corpuscular HGB Conc 32.7 g/dL (31.8-35.4); Mean Corpuscular Hemoglobin 28.4 pg (27.0-31.2); Mean Corpuscular Volume 86.8 fl (80-94); Nucleated Red Blood Cells % 0 %; Platelet Count 155 K/mm3 (142-424); Red Blood Count 4.02 M/mm3 (4.60-6.20); Red Cell Distribution Width-SD 48.0 fL; White Blood Count 3.9 K/mm3 (4.8-10.8)
[2025-07-23 08:41] LABS: Alanine Aminotransferase 20 U/L (12-78); Albumin Level 4.1 g/dl (3.5-5.0); Albumin/Globulin Ratio 1.8 (1.1-1.8); Alkaline Phosphatase 82 U/L (38-126); Anion Gap 13.7 mEq/L (5-15); Aspartate Amino Transferase 25 U/L (17-59); Bilirubin,Total 0.6 mg/dl (0.2-1.3); Blood Urea Nitrogen 17 mg/dl (9-20); Calcium 9.4 mg/dl (8.4-10.2); Carbon Dioxide 25 mmol/L (22.0-30.0); Chloride 105 mmol/L (98-107); Cholesterol 98 mg/dl (140-200); Creatinine,Serum 0.80 mg/dl (0.66-1.25); Estimated Glomerular Filt Rate 97 ml/min (>60); GFR (African American) 117 ML/MIN (>60); Globulin 2.3 g/dL (1.3-3.2); Glucose 87 mg/dl (74-100); HDL Cholesterol 39 mg/dl (40-60); Potassium 4.7 mmoL/L (3.5-5.1); Sodium 139 mmol/L (136-145); Total Protein,Serum 6.4 g/dl (6.3-8.2); Triglycerides 69 mg/dl (30-150)
[2025-07-23 08:56] LABS: 25-OH Vitamin D, Total 60.8 ng/mL (30-100)
[2025-07-23 10:07] LABS: Iron 73 ug/dL (49-181)
== END 2025-07-23 23:59 | disposition home or self-care (01) ==
LOC: LAB 07:49
PROVIDERS: PCP Family Medicine; Visit Provider Family Medicine
DX: E55.9 Vitamin D deficiency, unspecified (principal); E78.5 Hyperlipidemia, unspecified; D50.9 Iron deficiency anemia, unspecified; I10 Essential (primary) hypertension
CPT/HCPCS: 36415; 80053; 80061; 82306; 83540; 85025

== ENCOUNTER 2025-10-06 13:15 | Outpatient (CLI) | payer MEDICARE, BC, SELFPAY ==
--- NOTE | 2025-10-06 13:18 | CT_ITS ---
FINAL REPORT TECHNIQUE: CT examination of the abdomen and pelvis was performed using both pre and postcontrast enhanced images. Multiplanar reconstructions in the sagittal and coronal planes were subsequently performed. This study was performed with techniques to keep radiation doses as low as reasonably achievable (ALARA). Individualized dose reduction techniques using automated exposure control or adjustment of mA and/or kV according to the patient's size were employed. CLINICAL HISTORY: FLANK PAIN/ WEIGHT LOSS COMPARISON: None FINDINGS: CT ABDOMEN AND PELVIS WITH AND WITHOUT CONTRAST: Precontrast enhanced images demonstrate a densely calcified left hilar node. Scarring is present in the lung bases. There are calcified granulomas present in the spleen. No kidney stones are identified. Postcontrast enhanced images demonstrate normal spleen, pancreas, kidneys, liver, and right adrenal gland. There is a 2.8 x 1.6 cm nodule in the left adrenal gland, with a mean attenuation value of 3 Hounsfield units, probably representing a benign adenoma. The appendix is not visualized but no secondary signs of appendicitis are present. The gallbladder is present. There is moderate stool present in the colon. There is moderate stool present in the colon. The bladder is unremarkable in appearance. Note is made of a partially visualized hydrocele in the scrotum. IMPRESSION: Left adrenal nodule, 2.8 x 1.6 cm in size, likely representing a benign adenoma. Moderate stool is present in the colon. There is a partially visualized hydrocele present in the scrotum. Reviewed, Interpreted and Dictated by Isidoro Looney MD Transcribed by Sofy Cuello Authenticated and [facility]
[2025-10-06 13:43] LABS: Blood Urea Nitrogen 17 mg/dl (9-20); Creatinine,Serum 0.90 mg/dl (0.66-1.25); Estimated Glomerular Filt Rate 85 ml/min (>60); GFR (African American) 102 ML/MIN (>60)
[2025-10-06] MEDS: SODIUM CHLORIDE 0.9% 10ML SYR (RAD ONLY) 10 ML IV (14:20)
[2025-10-06] MEDS: IOPAMIDOL-370 (76%);100ML BOTTLE 75 ML IV (14:20)
== END 2025-10-06 23:59 | disposition home or self-care (01) ==
LOC: RAD 13:16
PROVIDERS: PCP Family Medicine; Visit Provider Family Medicine
DX: E27.8 Other specified disorders of adrenal gland (principal); N43.3 Hydrocele, unspecified; R10.9 Unspecified abdominal pain; R63.4 Abnormal weight loss
CPT/HCPCS: 36415; 74178; 82565; 84520; Q9967